=== PATIENT | male | born 1995 | race Caucasian/White ===

== ENCOUNTER 2018-09-05 15:57 | Emergency (ER) | payer OTHER ==
[2018-09-05] MEDS ORDERED: IBUPROFEN 800 MG TABLET PO ONE (16:32)
--- NOTE | 2018-09-05 16:32 | ER Document Report ---
HPI - HPI Patient complains to provider of: upper back strain Time Seen by Provider: 09/05/18 16:20 Onset: Last week Onset/Duration: Persistent Quality of pain: Achy Severity: Severe Pain Level: 5 Context: Patient presents emergency department with complaints of upper back pain since he lifted some heavy equipment at work. 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 He works at [email or web address]. He reports since that time he has been hurting. He has been taking Motrin without relief of symptoms. Denies numbness tingling. No other symptoms such as fever vomiting diarrhea. No other symptoms such as urinary bowel incontinence or retention. Reports he is never hurt this area before. Reports pain when he flexes his back muscles Associated Symptoms: None Exacerbated by: Movement Relieved by: Denies Similar symptoms previously: No Recently seen / treated by doctor: No Past Medical History - General Information source: Patient - Social History Smoking Status: Current Every Day Smoker Cigarette use (# per day): Yes Frequency of alcohol use: None Drug Abuse: None Family History: None Patient has suicidal ideation: No Patient has homicidal ideation: No - Medical History Medical History: Negative Surgical Hx: Negative Vertical Provider Document - CONSTITUTIONAL Agree With Documented VS: Yes Exam Limitations: No Limitations General Appearance: WD/WN, No Apparent Distress - No obvious distress until he flexes his back muscles - INFECTION CONTROL TRAVEL OUTSIDE OF THE [place] IN LAST 30 DAYS: No - HEENT HEENT: Atraumatic, Normocephalic - NECK Neck: Normal Inspection, Supple - No vertebral tenderness. negative: Lymphadenopathy-Left, Lymphadenopathy-Right - RESPIRATORY Respiratory: Breath Sounds Normal, No Respiratory Distress - CARDIOVASCULAR Cardiovascular: Regular Rate - BACK Back: Normal Inspection - No obvious deformity no swelling no erythema no warmth good distal movement and sensation. Patient complains of pain to bilateral trapezius muscles no weakness - MUSCULOSKELETAL/EXTREMETIES Musculoskeletal/Extremeties: MAEW, FROM, Non-Tender - NEURO Level of Consciousness: Awake, Alert, Appropriate Motor/Sensory: No Motor Deficit - DERM Integumentary: Warm, Dry Adult Front & Back Diagram: 1 - Reports pain paraspinal/ bilateral trapezius Course - Re-evaluation Re-evalutation: 09/05/18 18:17 Patient was instructed on plan of care to include medications rest no heavy lifting. He was instructed to follow-up with his primary care provider for reevaluation and referral to orthopedics as indicated. He verbalized understanding to all instructions. Dictation of this chart was performed using voice recognition software; therefore, there may be some unintended grammatical errors. - Vital Signs Vital signs: 09/05/18 16:32 99.3 heart rate 59 blood pressure 139/79 respirations 18 98% sat Discharge - Discharge Clinical Impression: Upper back pain Condition: Stable Disposition: HOME, SELF-CARE Instructions: Ibuprofen (General) ([facility]), Ice Packs ([facility]), Muscle Relaxers ([facility]), Upper Back Strain ([facility]) Additional Instructions: *You have been evaluated for upper back pain *Take medication as prescribed *Rest/Ice packs as indicated *Follow up with a primary care provider within one week for recheck *Return to ED for worsening condition, changes, needs Monitor your blood pressure. Your blood pressure was elevated today. This may be because you were anxious, in pain or because you need medication. It is important to follow up with your primary care provider for full evaluation. Prescriptions: Cyclobenzaprine HCl [Flexeril 10 Mg Tablet] 10 mg PO TID #15 tablet Ibuprofen [Motrin 800 mg Tablet] 800 mg PO TID #15 tablet Forms: Elevated Blood Pressure, Return to Work
== END 2018-09-05 16:58 | disposition home or self-care (01) ==
LOC: ER 15:57
DX: M54.89 Other dorsalgia (principal); M79.18 Myalgia, other site; X50.0XXA Overexertion from strenuous movement or load, initial encounter; Y93.89 Activity, other specified; Y99.2 Volunteer activity; F17.210 Nicotine dependence, cigarettes, uncomplicated
CPT/HCPCS: 99283